=== PATIENT | female | born 1970 | race American Indian/Alaskan Native ===

== ENCOUNTER 2017-08-13 10:46 | Emergency (ER) | payer SELFPAY ==
--- NOTE | 2017-08-13 12:49 | Emergency Department Report ---
ED Upper Extremity Inj HPI - General Chief Complaint: Extremity Injury, Upper Stated Complaint: KNOT R INDEX FINGER, R SHOULDER Time Seen by Provider: 08/13/17 12:20 Source: patient Mode of arrival: Ambulatory Limitations: No Limitations - History of Present Illness Complaint: Injury to:: right, shoulder, finger -: Gradual, month(s) Other Extremity Injury: Fingers: Right, Shoulder: Right Handedness: right Place: home Improves With: none Worsens With: movement of extremity Context: other (inury 2 m ago w reduction a pcp office; has ortho md who told her likely soft tissue tear) Associated Symptoms: denies other symptoms Treatments Prior to Arrival: NSAIDS - Related Data Previous Rx's Medication Instructions Recorded Last Taken Type Cyclobenzaprine [Flexeril] 10 mg PO TID PRN #10 tablet 08/13/17 Unknown Rx predniSONE [Deltasone] 20 mg PO DAILY #5 tablet 08/13/17 Unknown Rx traMADol [Ultram] 50 mg PO Q6HR PRN #10 tablet 08/13/17 Unknown Rx Allergies Allergy/AdvReac Type Severity Reaction Status Date / Time No Known Allergies Allergy Verified 08/13/17 11:12 ED Review of Systems ROS: Stated complaint: KNOT R INDEX FINGER, R SHOULDER Other details as noted in HPI Comment: All other systems reviewed and negative Musculoskeletal: other (r shoulder and r finger pain) ED Past Medical Hx - Past Medical History Previous Medical History?: No - Surgical History Past Surgical History?: Yes Additional Surgical History: achilles tendon L. l shoulder surg - Social History Smoking Status: Never Smoker Substance Use Type: None - Medications Home Medications: Home Medications Medication Instructions Recorded Confirmed Last Taken Type Cyclobenzaprine [Flexeril] 10 mg PO TID PRN #10 tablet 08/13/17 Unknown Rx predniSONE [Deltasone] 20 mg PO DAILY #5 tablet 08/13/17 Unknown Rx traMADol [Ultram] 50 mg PO Q6HR PRN #10 tablet 08/13/17 Unknown Rx ED Physical Exam - General Limitations: No Limitations General appearance: alert - Head Head exam: Present: atraumatic - Eye Eye exam: Present: normal appearance - ENT ENT exam: Present: mucous membranes moist - Neck Neck exam: Present: normal inspection - Respiratory Respiratory exam: Present: normal lung sounds bilaterally - Cardiovascular Cardiovascular Exam: Present: regular rate - GI/Abdominal GI/Abdominal exam: Present: soft, normal bowel sounds - Rectal Rectal exam: Present: deferred - Extremities Exam Extremities exam: Present: normal inspection - Expanded Upper Extremity Exam Right Shoulder Exam: Present: full ROM (but guarded, aches, for months sp injury). Absent: tenderness, swelling, abrasion, laceration, ecchymosis, deformity, crepidus, dislocation, erythema, tenderness over AC joint Upper Arm exam: Present: normal inspection Elbow exam: Present: normal inspection Forearm Wrist exam: Present: normal inspection Hand Wrist exam: Present: normal inspection Neuro motor exam: Present: wrist extension intact Neurosensory exam: Present: radial nerve intact, ulnar nerve intact Vascular: Present: normal capillary refill - Back Exam Back exam: Present: normal inspection - Neurological Exam Neurological exam: Present: alert, oriented X3 - Psychiatric Psychiatric exam: Present: normal affect, normal mood - Skin Skin exam: Present: warm, dry ED Course Vital Signs 08/13/17 11:12 Temperature 97.8 F Pulse Rate 89 Respiratory 16 Rate Blood Pressure 155/92 O2 Sat by Pulse 97 Oximetry - Reevaluation(s) Reevaluation #1: 08/13/17 13:27 pt reports dislocation of her r shoulder 2 mo ago she states it was reduced by pcp in [place] it got better then one night about a month ago she rolled over in bed and it started to hurt again she has ortho md who told her it likely is tear today pain inc no new trauma so to er n/v intact good rad/ulnar pulse rapid cap refill full rom but guarded pt reeducated on importance of ortho eval for likely mri she will fu sling medicated dc home w dc poc. ED Medical Decision Making - Radiology Data Radiology results: report reviewed, image reviewed 2 m old injury not new see note - Medical Decision Making see note - Differential Diagnosis ro acute injury Critical care attestation.: If time is entered above; I have spent that time in minutes in the direct care of this critically ill patient, excluding procedure time. ED Disposition Clinical Impression: Shoulder pain, Finger contusion, Elevated blood pressure reading Disposition: DC-01 TO HOME OR SELFCARE Is pt being admited?: No Does the pt Need Aspirin: No Condition: Stable Instructions: Shoulder Sprain (ED) Additional Instructions: follow up with your ortho md chacho for further eval of the shoulder sling alternate ice/heat meds as ordered monitor blood pressure Prescriptions: Cyclobenzaprine [Flexeril] 10 mg PO TID PRN #10 tablet PRN Reason: Muscle Spasm predniSONE [Deltasone] 20 mg PO DAILY #5 tablet traMADol [Ultram] 50 mg PO Q6HR PRN #10 tablet PRN Reason: Pain Referrals: PRIMARY CARE, [Primary Care Provider] - 3-5 Days Time of Disposition: 13:13
--- NOTE | 2017-08-13 13:01 | XRay Report ---
Right fifth finger multiple views: History: Right fifth finger injury. Findings: There is no acute fracture or dislocation noted. Cortical thickening identified at the proximal and mid phalanx diaphysis probably related to old injury or chronic injury. Impression: No evidence of acute fracture.
--- NOTE | 2017-08-13 13:03 | XRay Report ---
Right shoulder 3 views: History: Shoulder injury. Findings: A.c. joint grossly appears unremarkable. There is slight anteroinferior position noted of the humeral head in relation to the glenoid. No soft tissue calcification or acute fracture. Impression: Possible anteroinferior subluxation of humeral head in relation to glenoid.
[2017-08-13] MEDS ORDERED: TORADOL IM ONE (13:13)
[2017-08-13 13:55] VITALS: BP 148/93
== END 2017-08-13 14:00 | disposition home or self-care (01) ==
LOC: ED 10:46
DX: S60.021A Contusion of right index finger without damage to nail, initial encounter (principal); M25.511 Pain in right shoulder; R03.0 Elevated blood-pressure reading, without diagnosis of hypertension; X58.XXXA Exposure to other specified factors, initial encounter; Y93.89 Activity, other specified; Y99.8 Other external cause status; Y92.89 Other specified places as the place of occurrence of the external cause
CPT/HCPCS: 73030; 73140; 96372; 99283; J1885

== ENCOUNTER 2017-11-20 07:29 | Outpatient (CLI) | payer OTHER ==
--- NOTE | 2017-11-22 11:49 | Magnetic Resonance Report ---
MRI RIGHT SHOULDER WITHOUT CONTRAST: 11/20/17 CLINICAL: Right shoulder pain. Rotator cuff disorder. TECHNIQUE: Coronal T1, coronal T2, coronal proton density fat saturation, sagittal proton density fat saturation and axial gradient echo T* sequences on a 1.5 Vivi magnet. FINDINGS: A type II acromion and moderate acromioclavicular joint arthritis with impingement on the supraspinatus tendon. Tendinosis and partial-thickness tears of the distal supraspinatus and infraspinatus tendons. The rest of the rotator cuff is intact. Mild subdeltoid fluid. No joint effusion. The biceps tendon and glenoid labrum are intact. Normal marrow signal with no bone contusion or fracture. There is evidence of glenohumeral joint arthritis with a small inferior humeral osteophyte and subchondral geodes of the inferior glenoid. No muscle atrophy and no abnormal muscle signal. IMPRESSION: 1. Tendinosis and partial-thickness tears of the distal supraspinatus and infraspinatus tendons. 2. Acromioclavicular joint arthritis with narrowing of the subacromial space and impingement upon the supraspinatus tendon. 3. Glenohumeral joint arthritis.
== END 2017-11-20 07:30 | disposition home or self-care (01) ==
LOC: MRI 07:29
PROVIDERS: ATTEND Family Medicine
DX: S46.811A Strain of other muscles, fascia and tendons at shoulder and upper arm level, right arm, initial encounter (principal); M75.101 Unspecified rotator cuff tear or rupture of right shoulder, not specified as traumatic; M67.911 Unspecified disorder of synovium and tendon, right shoulder; M19.011 Primary osteoarthritis, right shoulder; X58.XXXA Exposure to other specified factors, initial encounter; Y93.89 Activity, other specified; Y92.89 Other specified places as the place of occurrence of the external cause; Y99.8 Other external cause status